=== PATIENT | male | born 1940 | race Caucasian/White ===

== ENCOUNTER 2016-04-28 07:49 | Outpatient (CLI) | payer MEDICARE ==
[2012-11-05 16:33] VITALS: BP 125/78
== END 2016-04-28 07:50 ==
LOC: LAB 07:49
PROVIDERS: ATTEND Family Medicine
DX: Z51.81 Encounter for therapeutic drug level monitoring (principal); Z79.01 Long term (current) use of anticoagulants; I82.409 Acute embolism and thrombosis of unspecified deep veins of unspecified lower extremity
CPT/HCPCS: 36415; 85610

== ENCOUNTER 2016-05-11 07:50 | Outpatient (CLI) | payer MEDICARE ==
[2012-11-05 16:33] VITALS: BP 125/78
== END 2016-05-11 07:52 ==
LOC: LAB 07:50
PROVIDERS: ATTEND Family Medicine
DX: Z51.81 Encounter for therapeutic drug level monitoring (principal); I82.409 Acute embolism and thrombosis of unspecified deep veins of unspecified lower extremity
CPT/HCPCS: 36415; 85610

== ENCOUNTER 2016-05-27 07:52 | Outpatient (CLI) | payer MEDICARE ==
[2012-11-05 16:33] VITALS: BP 125/78
== END 2016-05-27 07:53 ==
LOC: LAB 07:52
PROVIDERS: ATTEND Family Medicine
DX: Z51.81 Encounter for therapeutic drug level monitoring (principal); Z79.01 Long term (current) use of anticoagulants; I82.409 Acute embolism and thrombosis of unspecified deep veins of unspecified lower extremity
CPT/HCPCS: 36415; 85610

== ENCOUNTER 2016-06-24 07:56 | Outpatient (CLI) | payer MEDICARE ==
[2012-11-05 16:33] VITALS: BP 125/78
== END 2016-06-24 07:57 ==
LOC: LAB 07:56
PROVIDERS: ATTEND Family Medicine
DX: I82.409 Acute embolism and thrombosis of unspecified deep veins of unspecified lower extremity (principal)
CPT/HCPCS: 36415; 85610

== ENCOUNTER 2016-07-27 07:55 | Outpatient (CLI) | payer MEDICARE ==
[2012-11-05 16:33] VITALS: BP 125/78
== END 2016-07-27 07:56 ==
LOC: LAB 07:55
PROVIDERS: ATTEND Family Medicine
DX: Z51.81 Encounter for therapeutic drug level monitoring (principal); Z79.01 Long term (current) use of anticoagulants; I82.409 Acute embolism and thrombosis of unspecified deep veins of unspecified lower extremity
CPT/HCPCS: 36415; 85610

== ENCOUNTER 2016-08-24 07:53 | Outpatient (CLI) | payer MEDICARE ==
[2012-11-05 16:33] VITALS: BP 125/78
== END 2016-08-24 07:54 ==
LOC: LAB 07:53
PROVIDERS: ATTEND Family Medicine
DX: Z51.81 Encounter for therapeutic drug level monitoring (principal); Z79.01 Long term (current) use of anticoagulants; I82.409 Acute embolism and thrombosis of unspecified deep veins of unspecified lower extremity
CPT/HCPCS: 36415; 85610

== ENCOUNTER 2016-09-24 07:49 | Outpatient (CLI) | payer MEDICARE ==
[2012-11-05 16:33] VITALS: BP 125/78
== END 2016-09-24 07:50 ==
LOC: LAB 07:49
PROVIDERS: ATTEND Family Medicine
DX: I82.409 Acute embolism and thrombosis of unspecified deep veins of unspecified lower extremity (principal)
CPT/HCPCS: 36415; 85610

== ENCOUNTER 2016-10-26 07:51 | Outpatient (CLI) | payer MEDICARE ==
[2012-11-05 16:33] VITALS: BP 125/78
== END 2016-10-26 07:52 ==
LOC: LAB 07:51
PROVIDERS: ATTEND Family Medicine
DX: I82.409 Acute embolism and thrombosis of unspecified deep veins of unspecified lower extremity (principal)
CPT/HCPCS: 36415; 85610

== ENCOUNTER 2016-11-09 11:46 | Day surgery (SDC) | payer MEDICARE ==
[2012-11-05 16:33] VITALS: BP 125/78
[~2016-11-09 11:46] MED LIST: LACTATED RINGERS 1,000 ML IV.SOLN IV ONE; PROPOFOL 200 MG/20 ML VIAL IV ONE; SALINE FLUSH 10 ML DISP.SYRIN IVF ONE
--- NOTE | 2016-11-10 11:25 | GI Report ---
REFERRING PHYSICIAN: Dr. Red Motley MASONRY SUPERVISOR: Adam Luke MD PROCEDURE MEDICATION: Propofol as per anesthesia. INDICATIONS: This 76-year-old man has had a lot of adenomatous polyps in the past. His mother had colon cancer. He is referred for a follow-up evaluation. PROCEDURE PERFORMED: Colonoscopy with polypectomy. PROCEDURE: An Olympus video colonoscope was advanced to the rectum. He does have extensive diverticular disease of the sigmoid and descending colon and a very atonic and redundant colon. The prep was fair. We did lavage many areas and suctioned to clear it and we were able to reach the cecum. The appendiceal orifice was identified and the ileocecal valve was identified. On slow withdrawal, the cecum, ascending colon, and transverse colon with no obvious intraluminal lesions noted. The descending colon and sigmoid with extensive diverticular disease. At 30 cm, the patient had about a 3 to 4 mm polyp removed with a cold snare. Retroflexion of the rectum was normal. Patient tolerated the procedure well. FINDINGS: 1. Sigmoid polyp removed at 30 cm. 2. Extensive diverticular disease of the sigmoid and descending colon. RECOMMENDATIONS: 1. High-fiber diet. 2. Pending the pathology of the polyp, consider re-looking at his colon within 5 years. 3. Again, would recommend a 2-day prep for his colonoscopy because with his extensive diverticular disease, it is just very slow getting cleared out. cc: Dr. Red KATHLEEN
== END 2016-11-09 11:47 ==
LOC: OPSURG 11:46
PROVIDERS: ATTEND Internal Medicine Gastroenterology
DX: D12.5 Benign neoplasm of sigmoid colon (principal); K57.30 Diverticulosis of large intestine without perforation or abscess without bleeding; K59.8 Other specified functional intestinal disorders; Z80.0 Family history of malignant neoplasm of digestive organs
CPT/HCPCS: 36415; 45385; 85610; J2704; J7120; S1016

== ENCOUNTER 2016-11-19 07:54 | Outpatient (CLI) | payer MEDICARE ==
[2012-11-05 16:33] VITALS: BP 125/78
[2016-11-19 08:40] LABS: eGFR (African) > 60; eGFR (Non-African) > 60
== END 2016-11-19 07:55 ==
LOC: LAB 07:54
PROVIDERS: ATTEND Family Medicine
DX: E78.00 Pure hypercholesterolemia, unspecified (principal); Z51.81 Encounter for therapeutic drug level monitoring
CPT/HCPCS: 36415; 80053; 80061

== ENCOUNTER 2016-12-02 14:14 | Outpatient (CLI) | payer MEDICARE ==
[2012-11-05 16:33] VITALS: BP 125/78
--- NOTE | 2016-12-03 14:29 | OP Clinic Progress Note ---
REASON FOR VISIT: Denys is seen and he is a 76-year-old man who has had problems that seem to be related to his upper dentures placed. He had dental extraction either late last year or in April of this year. He then had a temporary upper plate put in. About a month later, he began having hypersalivation by his symptomatic impression. A fair number of months later, he has gotten a permanent one that he feels is pretty much identical to the temporary upper plate. He has used dental paste to keep them in but over the last at least 2 months, he stopped using it as he takes his teeth out, except when he is talking with people face to face. He does not have pain. He has not had gross purulence. I have palpated the parotids. They are not tender. I expressed fairly clear saliva out of the Stensen's duct and there is no gross purulence. He has some tenderness on the upper aspect of the dentures on the left side but I do not see a bony erosion. There is some mild erythema along the alveolar border at about what would have been the 2nd molar. There is no excessive inflammatory reaction in general in the mouth, particularly in the areas where he has the dentures. The exact etiology of this is not clear. As the patient stopped using denture paste for at least 2 months and he still has the same problem, I do not believe he is having a reactive problem with the paste. He does have a reactivity of the salivary glands to the dentures. The exact etiology is unknown. It is possible he could have a chemical reaction with hypersalivation. Of note, he has had some increased clear rhinitis since he has had the dentures PLAN: The patient and his had a question of whether I felt that there was an infectious process and that he ought to have antibiotics and the answer is no, I do not see any evidence of pus and he has clear fluid coming out of his salivary ducts. He does not have a reaction to the paste, as he still has the problem with no paste being used. The general picture as to whether the mouth in general is bothered and irritated by the physical presence of the dentures or whether there is more of a chemical reaction that is not necessarily allergic. I think it is extremely difficult to differentiate that aspect of it. Except for 1 very small slightly irritated area at about what would be approximately the 2nd molar, I do not see any evidence of any erosion in the mouth. Additionally, I do not see any generalized hyperreactivity of the surface of the maxilla in the areas where he has the dentures. It is a difficult plight to answer. Again, it does not look like it is infectious. Whether it is a reaction to the mechanical effect of the dentures or whether it is a reaction to the material would be for the dentists that deal with dentures as a prosthesis to answer. Again, this is repetition, but thought process uribe it can go down the track of either being a mechanical irritation or chemical reactivity. I suggested that he re-contact his dentist or seek a different dental allergist/md opinion. cc: Dr. Red KATHLEEN
== END 2016-12-02 14:15 ==
LOC: ENT 14:14
PROVIDERS: ATTEND Otolaryngology
DX: R13.10 Dysphagia, unspecified (principal); K08.89 Other specified disorders of teeth and supporting structures
CPT/HCPCS: G0463

== ENCOUNTER 2016-12-25 07:43 | Outpatient (CLI) | payer MEDICARE ==
[2012-11-05 16:33] VITALS: BP 125/78
== END 2016-12-25 07:44 ==
LOC: LAB 07:43
PROVIDERS: ATTEND Family Medicine
DX: I82.409 Acute embolism and thrombosis of unspecified deep veins of unspecified lower extremity (principal)
CPT/HCPCS: 36415; 85610

== ENCOUNTER 2017-01-25 07:40 | Outpatient (CLI) | payer MEDICARE ==
[2012-11-05 16:33] VITALS: BP 125/78
== END 2017-01-25 07:42 ==
LOC: LAB 07:40
PROVIDERS: ATTEND Family Medicine
DX: I82.409 Acute embolism and thrombosis of unspecified deep veins of unspecified lower extremity (principal)
CPT/HCPCS: 36415; 85610

== ENCOUNTER 2017-02-24 07:46 | Outpatient (CLI) | payer MEDICARE ==
[2012-11-05 16:33] VITALS: BP 125/78
== END 2017-02-24 07:47 ==
LOC: LAB 07:46
PROVIDERS: ATTEND Family Medicine
DX: I82.409 Acute embolism and thrombosis of unspecified deep veins of unspecified lower extremity (principal)
CPT/HCPCS: 36415; 85610

== ENCOUNTER 2017-04-16 12:41 | Outpatient (CLI) | payer MEDICARE ==
[2012-11-05 16:33] VITALS: BP 125/78
[2017-04-16 12:56] LABS: MEAN CORPUSCULAR HEMOGLOBIN 35.8 pg (28.0-34.0); MEAN CORPUSCULAR VOLUME 113.3 fl (80.0-100.0)
[2017-04-16 13:11] LABS: eGFR (African) > 60; eGFR (Non-African) > 60
[2017-04-16 13:28] LABS: HYPOCHROMASIA 1+ (NEGATIVE); MONOCYTES % 2 % (0-11); SEGMENTED NEUTROPHILS % 23 % (39-79)
== END 2017-04-16 12:45 ==
LOC: LABRHC 12:41
PROVIDERS: ATTEND Family Medicine
DX: E87.1 Hypo-osmolality and hyponatremia (principal); C91.10 Chronic lymphocytic leukemia of B-cell type not having achieved remission
CPT/HCPCS: 80048; 85025

== ENCOUNTER 2017-05-11 09:12 | Outpatient (CLI) | payer MEDICARE ==
[2012-11-05 16:33] VITALS: BP 125/78
[2017-05-11 09:31] LABS: APPEARANCE,URINE Cloudy (CLEAR); COLOR,URINE Amber (YELLOW); OCCULT BLOOD,URINE 3+ (NEGATIVE)
== END 2017-05-11 09:13 ==
LOC: LAB 09:12
PROVIDERS: ATTEND Family Medicine
DX: N39.0 Urinary tract infection, site not specified (principal)
CPT/HCPCS: 81002

== ENCOUNTER → 2017-05-21 | Outpatient (CLI) | payer MEDICARE ==
[2012-11-05 16:33] VITALS: BP 125/78
[2017-05-21 12:14] LABS: MEAN CORPUSCULAR HEMOGLOBIN 32.6 pg (28.0-34.0); MEAN CORPUSCULAR VOLUME 111.4 fl (80.0-100.0)
[2017-05-21 12:31] LABS: ANISOCYTOSIS 1+ (NEGATIVE); EOSINOPHILS % 3 % (0-7); HYPOCHROMASIA 1+ (NEGATIVE); SEGMENTED NEUTROPHILS % 12 % (39-79)
[2017-05-21 13:23] LABS: eGFR (African) > 60; eGFR (Non-African) > 60
== END ==
LOC: LAB 11:56
PROVIDERS: ATTEND Family Medicine
DX: Z79.899 Other long term (current) drug therapy (principal); C91.10 Chronic lymphocytic leukemia of B-cell type not having achieved remission
CPT/HCPCS: 36415; 80053; 85025

== ENCOUNTER → 2017-05-21 | Outpatient (CLI) | payer MEDICARE ==
[2012-11-05 16:33] VITALS: BP 125/78
--- NOTE | 2017-05-21 12:44 | Diagnostic Imaging Report ---
JENNIFER BUSTILLO [facility] [address] [facility] [address] [place], [place]. [address] Report Submission Date: May 21, 2017 12:34:35 PM DIRECTOR INVESTOR RELATIONS Patient Study Name: DANETTE QUILES Date: May 21, 2017 12:13:52 PM DIRECTOR INVESTOR RELATIONS Modality Type: CT\SR Gender: M Description: CT BRAIN W/O CONTRAST : 41 Institution: [facility] Physician: JENNIFER BUSTILLO Examination: CT head without contrast History: Mental status change. History of subdural hematoma. Comparison exam: None available Technique: Noncontrast head CT protocol. Findings: Ventricles and sulci are prominent. Cerebrocerebellar parenchyma demonstrates periventricular low attenuation consistent with small vessel disease. No evidence for parenchymal hemorrhage. No evidence for mass or mass effect. No midline shift. Left craniotomy surgical changes with mild increased density along the osseous inner table. No extra axial fluid collections. Partial visualization of the paranasal sinuses, mastoid air cells, orbits, remainder of the skull and scalp without gross irregularity. Impression: Age related changes. No acute parenchymal process. Left craniotomy surgical changes with mild increased density along the osseous inner table - likely postsurgical. Correlation with prior examinations recommended when they become available. Electronically signed on May 21, 2017 12:34:35 PM DIRECTOR INVESTOR RELATIONS by: Barrington KATHLEEN
== END ==
LOC: RAD 11:55
PROVIDERS: ATTEND Family Medicine
DX: I62.00 Nontraumatic subdural hemorrhage, unspecified (principal)
CPT/HCPCS: 70450

== ENCOUNTER 2017-06-11 11:30 | Inpatient (IN) | payer SELFPAY ==
[2012-11-05 16:33] VITALS: BP 125/78
== END 2017-07-26 12:12 | DRG 948 ==
LOC: ICF 11:30
PROVIDERS: ADMIT Family Medicine; ATTEND Family Medicine
DX: R53.1 Weakness (principal)

== ENCOUNTER 2017-06-14 16:14 | Outpatient (CLI) | payer MEDICARE ==
[2012-11-05 16:33] VITALS: BP 125/78
--- NOTE | 2017-06-14 16:58 | Diagnostic Imaging Report ---
Report Submission Date: Jun 14, 2017 4:54:26 PM PARKING OFFICER Patient Study Name: DANETTE QUILES Date: Jun 14, 2017 4:34:21 PM PARKING OFFICER Modality Type: CT\SR Gender: M Description: CT HEAD W/O : 41 Institution: [facility] Physician: CRISTO BUSTILLO CT brain noncontrast Date of study: June 14, 2017 Comparison: May 21, 2017 CLINICAL HISTORY: LEFT SIDED WEAKNESS, HX OF SUBDURAL HEMATOMA (Hx) / LEFT SIDED WEAKNESS; HX OF SUBDURAL HEMATOMA (DICOM Hx) TECHNIQUE: 5 mm contiguous axial images of the brain, noncontrast. FINDINGS: There is no evidence of intracranial mass effect, hemorrhage, or acute hydrocephalus. The lateral ventricles are enlarged and the 4th ventricle is midline without shift. No acute brain parenchymal changes or extra-axial fluid collections are identified. Cerebral atrophy and white matter gliosis are present. There is a left frontotemporal parietal craniotomy defect that is unchanged. Intracranial atherosclerotic vascular calcifications noted. The visualized sinuses and mastoid air cells are clear. IMPRESSION: No acute intracranial process. No change from the previous CT head Electronically signed on Jun 14, 2017 4:54:26 PM PARKING OFFICER by: Amado KATHLEEN
== END 2017-06-14 16:15 ==
LOC: RAD 16:14
PROVIDERS: ATTEND Family Medicine
DX: R53.1 Weakness (principal); G81.94 Hemiplegia, unspecified affecting left nondominant side; R41.0 Disorientation, unspecified
CPT/HCPCS: 70450

== ENCOUNTER 2017-06-16 07:10 | Outpatient (CLI) | payer MEDICARE ==
[2012-11-05 16:33] VITALS: BP 125/78
[2017-06-16 07:27] LABS: APPEARANCE,URINE Clear (CLEAR); COLOR,URINE Yellow (YELLOW); OCCULT BLOOD,URINE Negative (NEGATIVE)
[2017-06-16 18:11] LABS: eGFR (African) > 60; eGFR (Non-African) > 60
[2017-06-16 18:12] LABS: MEAN CORPUSCULAR HEMOGLOBIN 31.9 pg (28.0-34.0); MEAN CORPUSCULAR VOLUME 107.6 fl (80.0-100.0)
[2017-06-16 18:16] LABS: EOSINOPHILS % 1 % (0-7); HYPOCHROMASIA 1+ (NEGATIVE); SEGMENTED NEUTROPHILS % 10 % (39-79)
[2017-06-16 18:17] LABS: ANISOCYTOSIS 1+ (NEGATIVE)
== END 2017-06-16 07:11 ==
LOC: LAB 07:10
PROVIDERS: ATTEND Family Medicine
DX: N39.0 Urinary tract infection, site not specified (principal); R41.0 Disorientation, unspecified; G35 Multiple sclerosis; I10 Essential (primary) hypertension; C91.10 Chronic lymphocytic leukemia of B-cell type not having achieved remission
CPT/HCPCS: 36415; 80053; 81002; 85025

== ENCOUNTER 2017-06-29 11:06 | Outpatient (CLI) | payer MEDICARE ==
[2012-11-05 16:33] VITALS: BP 125/78
[2017-06-29 13:53] LABS: MEAN CORPUSCULAR HEMOGLOBIN 31.9 pg (28.0-34.0); MEAN CORPUSCULAR VOLUME 105.6 fl (80.0-100.0)
[2017-06-29 14:38] LABS: ANISOCYTOSIS 1+ (NEGATIVE); HYPOCHROMASIA 1+ (NEGATIVE); SEGMENTED NEUTROPHILS % 13 % (39-79)
[2017-06-30] MEDS ORDERED: 0.9 % SODIUM CHLORIDE 250 ML IV ONE (09:25)
[2017-06-30] MEDS ORDERED: ACETAMINOPHEN 325 MG TABLET ONE (13:39)
[2017-06-30] MEDS ORDERED: diphenhydrAMINE HCL 25 MG TABLET PO ONE (13:39)
== END 2017-06-29 11:20 ==
LOC: LAB 11:06
PROVIDERS: ATTEND Family Medicine
DX: Z51.81 Encounter for therapeutic drug level monitoring (principal)
CPT/HCPCS: 36415; 80156; 85025

== ENCOUNTER 2017-06-30 11:50 | Outpatient (CLI) | payer MEDICARE ==
[2012-11-05 16:33] VITALS: BP 125/78
[2017-06-30] MEDS ORDERED: ACETAMINOPHEN 325 MG TABLET PO ONE (13:39)
[2017-06-30] MEDS ORDERED: diphenhydrAMINE HCL 25 MG TABLET PO ONE (13:39)
== END 2017-06-30 13:49 ==
LOC: OUT 11:50
PROVIDERS: ATTEND Family Medicine
DX: D50.9 Iron deficiency anemia, unspecified (principal)
CPT/HCPCS: 36430; 86885; 86900; 86901; 86920; P9040; S1016

== ENCOUNTER 2017-07-06 14:20 | Outpatient (CLI) | payer MEDICARE ==
[2012-11-05 16:33] VITALS: BP 125/78
[2017-07-06 15:10] LABS: MEAN CORPUSCULAR HEMOGLOBIN 30.8 pg (28.0-34.0); MEAN CORPUSCULAR VOLUME 101.7 fl (80.0-100.0)
[2017-07-06 15:34] LABS: ANISOCYTOSIS 1+ (NEGATIVE); HYPOCHROMASIA 1+ (NEGATIVE); SEGMENTED NEUTROPHILS % 7 % (39-79)
== END 2017-07-07 14:30 ==
LOC: LAB 14:20
PROVIDERS: ATTEND Family Medicine
DX: D64.9 Anemia, unspecified (principal)
CPT/HCPCS: 36415; 85025

== ENCOUNTER 2017-08-04 08:50 | Outpatient (CLI) | payer MEDICARE ==
[2012-11-05 16:33] VITALS: BP 125/78
--- NOTE | 2017-08-04 19:50 | Diagnostic Imaging Report ---
RUFINA MALHOTRA~ [facility] [address] [facility] [address] [place] [address]. [id number] ~ ~ ~ ~ Report Submission Date: Aug 04, 2017 10:25:06 AM CDT Patient ~ Study Name: DANETTE QUILES ~ Date: Aug 04, 2017 9:04:01 AM CDT ~ Modality Type: CT\SR Gender: M ~ Description: CT BRAIN W/O CONTRAST : 41 ~ Institution: [facility] Physician: RUFINA MALHOTRA ~ ~ ~ Examination: CT head without contrast History:~ SUBDURAL HEMATOMA (Hx) Comparison exam: None available Technique: Noncontrast head CT protocol. Findings: Ventricles and sulci are prominent. Cerebrocerebellar parenchyma demonstrates periventricular low attenuation consistent with small vessel disease. No evidence for parenchymal hemorrhage. No evidence for mass or mass effect. No midline shift. Left craniotomy surgical changes. Mild thickening of the adjacent dura. Possible right hygromas. Partial visualization of the paranasal sinuses, mastoid air cells, orbits, remainder of the skull and scalp without gross irregularity. Impression: Age related changes. No acute parenchymal process. No overt hemorrhage. Prior left-sided craniotomy surgical changes. Correlation with any previous examination recommended to ascertain stability of the presumed age related parenchymal changes and left dural thickening. ~ Electronically signed on Aug 04, 2017 10:25:06 AM CDT by: Barrington KATHLEEN
== END 2017-08-04 08:52 ==
LOC: RAD 08:50
PROVIDERS: ATTEND Neurological Surgery
DX: I62.00 Nontraumatic subdural hemorrhage, unspecified (principal)
CPT/HCPCS: 70450